=== PATIENT | female | born 1970 | race Caucasian/White ===

== ENCOUNTER 2017-09-18 18:03 | Emergency (ER) | payer OTHER ==
[2017-09-18 18:08] VITALS: BP 122/95; PULSE 101; TEMP 98.3; BMI 31.6
--- NOTE | 2017-09-18 18:10 | PDOC ---
Rapid Medical Evaluation Time Seen by Provider: 09/18/17 18:05 Medical Evaluation: Allergies Allergy/AdvReac Type Severity Reaction Status Date / Time ciprofloxacin [From Cipro] Allergy Verified 09/18/17 18:05 ciprofloxacin HCl Allergy Verified 09/18/17 18:05 [From Cipro] 09/18/17 18:05 I performed a brief in-person evaluation of this patient. The patient presents with a chief complaint of: sorethroat, productive coughing with yellowish phlegm and chest pain x 3 days. Reports chest pain is intermittent and occurs with cough and deep breathing. Denies fever or chills Pertinent physical exam findings: HEENT: erythematous pharynx, no exudate, non enlarged tonsils nad lungs; cta bilat heart: s1s2 I have ordered the following: ekg rapid strep The patient will proceed to the Ed for further evaluation
--- NOTE | 2017-09-18 18:46 | PDOC ---
History of Present Illness - General Chief Complaint: Cold Symptoms Stated Complaint: SORE THROAT Time Seen by Provider: 09/18/17 18:05 History Source: Patient Exam Limitations: No Limitations - History of Present Illness Initial Comments: 09/18/17 18:38 47 yr female with sore throat and cough for 3 days no fever no chills no vomiting pt with phlegm and nasal congestion rapid strep obtained from E Severity: reports: mild Past History - Past Medical History Allergies/Adverse Reactions: Allergies Allergy/AdvReac Type Severity Reaction Status Date / Time ciprofloxacin [From Cipro] Allergy Verified 09/18/17 18:05 ciprofloxacin HCl Allergy Verified 09/18/17 18:05 [From Cipro] Home Medications: Ambulatory Orders Chlorphen/Pseudoeph/Ibuprofen [Advil Allergy Sinus Caplet] 1 each PO ASDIR 09/18 Cyclobenzaprine HCl [Flexeril -] 10 mg PO TID 09/18/17 Naproxen [Naprosyn -] 500 mg PO BID 09/18/17 Triamcinolone Acetonide [Nasacort] 10.8 ml NS DAILY #1 bottle 09/18/17 Asthma: Yes COPD: No - Suicide/Smoking/Psychosocial Hx Smoking History: Never smoked Have you smoked in the past 12 months: No Number of Cigarettes Smoked Daily: 1 Information on smoking cessation initiated: No Hx Alcohol Use: No Drug/Substance Use Hx: No Respiratory Specific PMHX - Complaint Specific PMHX Angina: No Bronchitis: No Pneumonia: No Pulmonary Embolus: No TB (Tuberculosis): No Review of Systems - Review of Systems Able to Perform ROS?: Yes Is the patient limited Cymro proficient: No Constitutional: No: Symptoms Reported HEENTM: Yes: See HPI Respiratory: Yes: See HPI *Physical Exam - Vital Signs Last Vital Signs Temp Pulse Resp BP Pulse Ox 98.3 F 101 H 20 122/95 98 09/18/17 18:05 09/18/17 18:05 09/18/17 18:05 09/18/17 18:05 09/18/17 18:05 - Physical Exam General Appearance: Yes: Nourished, Appropriately Dressed HEENT: positive: EOMI, JESSA, Pharyngeal Erythema, Other (post nasal drip ). negative: Tonsillar Exudate, Tonsillar Erythema Neck: positive: Supple. negative: Tender, Lymphadenopathy (R), Lymphadenopathy (L), Rigidity, Tender lateral Respiratory/Chest: positive: Lungs Clear, Normal Breath Sounds. negative: Chest Tender, Respiratory Distress, Accessory Muscle Use, Paradoxal Breathing, Crackles, Rales, Stridor, Wheezing Cardiovascular: positive: Regular Rhythm, Regular Rate Gastrointestinal/Abdominal: positive: Normal Bowel Sounds, Soft Musculoskeletal: positive: Normal Inspection Extremity: positive: Normal Capillary Refill, Normal Inspection, Normal Range of Motion Integumentary: positive: Normal Color, Dry, Warm Neurologic: positive: composition stone applicator II-XII NML intact, Fully Oriented, Alert, Normal Mood/ Affect, Normal Response, Motor Strength 02/20 ED Treatment Course - ADDITIONAL ORDERS Additional order review: 09/18/17 18:11 Group A Strep Rapid Antigen - Final Throat Medical Decision Making - Medical Decision Making 09/18/17 18:42 cc: sore throat sinus congestion cough for one week not improving with OTC meds pt has asthma states frequent URI will treat with nasocort pt is afebrile no wheezing at this time, no rhonchi, has post nasal drip pt aware to return to ER if any worse,we will notify her if culture is positive. 09/18/17 18:46 *DC/Admit/Observation/Transfer Diagnosis at time of Disposition: Upper respiratory infection Qualifiers: URI type: acute pharyngitis Pharyngitis/tonsillitis etiology: unspecified etiology Qualified Code(s): J02.9 - Acute pharyngitis, unspecified - Discharge Dispostion Disposition: HOME Condition at time of disposition: Good - Prescriptions Prescriptions: Triamcinolone Acetonide [Nasacort] 10.8 ml NS DAILY #1 bottle - Referrals Referrals: Trey Gallego MD [Primary Care Provider] - - Patient Instructions Additional Instructions: use nasocort as prescribed increase vitamin C and Zinc intake increase fluids gargle with warm salt water 4-5 times a day take motrin as needed for any pain or fever return to ER if any worsening symptoms we will call you if the culture is positive - Post Discharge Activity
--- NOTE | 2017-09-19 09:23 | EKG ---
Test Reason : Blood Pressure : / mmHG Vent. Rate : 086 BPM Atrial Rate : 086 BPM P-R Int : 136 ms QRS Dur : 076 ms QT Int : 376 ms P-R-T Axes : 043 010 024 degrees QTc Int : 449 ms NORMAL SINUS RHYTHM POSSIBLE LEFT ATRIAL ENLARGEMENT BORDERLINE ECG WHEN COMPARED WITH ECG OF 03-SEP-2011 00:50, NO SIGNIFICANT CHANGE WAS FOUND Confirmed by ANKUSH CHRISTIAN MD ([id number]) on 09/19/2017 9:23:15 AM Referred By: Confirmed By:ANKUSH CHRISTIAN MD
== END 2017-09-18 19:05 | disposition home or self-care (01) ==
LOC: JERFT 18:03
DX: J02.9 Acute pharyngitis, unspecified (principal)
CPT/HCPCS: 87070; 87430; 93005; 93010; 99281-25

== ENCOUNTER 2019-03-02 07:42 | Emergency (ER) | payer OTHER ==
[2019-03-02 07:53] VITALS: BP 127/87; PULSE 16; TEMP 98.5; BMI 32.0
[2019-03-02] MEDS ORDERED: IBUPROFEN 400 MG TABLET (FP) PO ONE ×2 (08:32→08:36)
--- NOTE | 2019-03-02 08:55 | PDOC ---
History of Present Illness - General Chief Complaint: Injury Stated Complaint: R ANKLE INJURY Time Seen by Provider: 03/02/19 08:20 History Source: Patient Exam Limitations: No Limitations Past History - Past Medical History Allergies/Adverse Reactions: Allergies Allergy/AdvReac Type Severity Reaction Status Date / Time ciprofloxacin [From Cipro] Allergy Verified 03/02/19 07:43 ciprofloxacin HCl Allergy Verified 03/02/19 07:43 [From Cipro] Home Medications: Ambulatory Orders Chlorphen/Pseudoeph/Ibuprofen [Advil Allergy Sinus Caplet] 1 each PO ASDIR 09/18 Cyclobenzaprine HCl [Flexeril -] 10 mg PO TID 09/18/17 Naproxen [Naprosyn -] 500 mg PO BID 09/18/17 Triamcinolone Acetonide [Nasacort] 10.8 ml NS DAILY #1 bottle 09/18/17 Asthma: Yes COPD: No - Immunization History Immunization Up to Date: Yes - Suicide/Smoking/Psychosocial Hx Smoking History: Current every day smoker Have you smoked in the past 12 months: No Number of Cigarettes Smoked Daily: 3 Information on smoking cessation initiated: No Hx Alcohol Use: No Drug/Substance Use Hx: No *Physical Exam - Vital Signs Last Vital Signs Temp Pulse Resp BP Pulse Ox 98.5 F 16 L 17 127/87 100 03/02/19 07:46 03/02/19 07:46 03/02/19 07:46 03/02/19 07:46 03/02/19 07:46 - Physical Exam General Appearance: No: Apparent Distress Extremity: positive: Other (swelling along R lateral malleolus with pain on inversion of R ankle, no deformity, pusles intact of RLE, no ecchymosis) Integumentary: positive: Normal Color. negative: Ecchymosis Neurologic: positive: Alert, Normal Mood/Affect ED Treatment Course - RADIOLOGY Radiology Studies Ordered: Category Date Time Status ANKLE & FOOT-RIGHT* [RAD] Stat Radiology 03/02/19 08:32 Taken - Medications Given in the ED: ED Medications Discontinued Medications Generic Name Dose Route Start Last Admin Trade Name Freq PRN Reason Stop Dose Admin Ibuprofen 800 mg 03/02/19 08:32 03/02/19 08:45 Motrin - PO 03/02/19 08:33 800 mg ONCE ONE Administration Medical Decision Making - Medical Decision Making 48 y/o F hx of anxiety, asthma presents with R ankle injury from yesterday. States she twisted her ankle from a crack on the sidewalk. Took a Motrin last night. Denies other complaints R ankle/foot xray reviewed - no fracture noted Likely ankle sprain Given aircast splint, crutches, Motrin Stable for dc 03/02/19 08:50 *DC/Admit/Observation/Transfer Diagnosis at time of Disposition: Ankle sprain Qualifiers: Encounter type: initial encounter Involved ligament of ankle: unspecified ligament Laterality: right Qualified Code(s): S93.401A - Sprain of unspecified ligament of right ankle, initial encounter - Discharge Dispostion Disposition: HOME Condition at time of disposition: Stable Decision to Admit order: No - Referrals Referrals: Trey Gallego MD [Primary Care Provider] - 2 Days - Patient Instructions Printed Discharge Instructions: DI for Ankle Sprain, How to Use Crutches Additional Instructions: Thank you for choosing [facility]. It was a pleasure taking care of you. No fracture was noted on your xray You may take Motrin 600 mg every 6 hours by mouth as needed for mild to moderate pain. Take Motrin with food. Ice the site for the first 48 hours; then you may switch to warm compresses Keep leg elevated above level of heart to help decrease swelling Follow-up with your doctor in 1 week Return to the Emergency Department if your symptoms worsen or persist or have other concerning symptoms. - Post Discharge Activity Forms/Work/School Notes: Back to Work
== END 2019-03-02 09:14 | disposition home or self-care (01) ==
LOC: JERFT 07:42
DX: S93.401A Sprain of unspecified ligament of right ankle, initial encounter (principal); X58.XXXA Exposure to other specified factors, initial encounter; Y93.89 Activity, other specified; Y92.89 Other specified places as the place of occurrence of the external cause; F41.9 Anxiety disorder, unspecified; F17.210 Nicotine dependence, cigarettes, uncomplicated
CPT/HCPCS: 73610-TC-RT-FY; 73630-TC-RT-FY; 99282-25

== ENCOUNTER 2019-03-10 12:53 | Emergency (ER) | payer OTHER ==
--- NOTE | 2019-03-10 12:58 | PDOC ---
Rapid Medical Evaluation Time Seen by Provider: 03/10/19 12:57 Medical Evaluation: Allergies Allergy/AdvReac Type Severity Reaction Status Date / Time ciprofloxacin [From Cipro] Allergy Verified 03/02/19 07:43 ciprofloxacin HCl Allergy Verified 03/02/19 07:43 [From Cipro] 03/10/19 12:57 I have performed a brief in-person evaluation of this patient. The patient presents with a chief complaint of: pain to left shoulder down arm after using crutches "i think i have a pinched nerve" last took naproxen yesterday Pertinent physical exam findings: well appearing, FROM to left shoulder/arm/ elbow I have ordered the following: shoulder x-ray The patient will proceed to the ED for further evaluation. 03/10/19 12:59
[2019-03-10 13:00] VITALS: BP 145/92; PULSE 105; TEMP 98; BMI 31.8
[2019-03-10] MEDS ORDERED: DEXAMETHASONE SOD PHOSPHATE 10 MG/1 ML VIAL IM ONE (14:39)
[2019-03-10] MEDS ORDERED: IBUPROFEN 600 MG TABLET (FP) PO ONE ×2 (14:39→14:43)
[2019-03-10] MEDS ORDERED: ACETAMINOPHEN 500 MG TABLET (FP) PO ONE (14:39)
[2019-03-10] MEDS ORDERED: DEXAMETHASONE SOD PHOSPHATE 10 MG/1 ML VIAL ONE (14:43)
[2019-03-10] MEDS ORDERED: ACETAMINOPHEN 500 MG TABLET (FP) ONE (14:43)
--- NOTE | 2019-03-10 14:44 | PDOC ---
History of Present Illness - General Chief Complaint: Pain Stated Complaint: LT. SHOULDER/ARM/HAND Time Seen by Provider: 03/10/19 12:57 History Source: Patient, Old Records Exam Limitations: No Limitations - History of Present Illness Initial Comments: 03/10/19 14:39 HISTORY OF PRESENT ILLNESS: No recent travel or sick contacts. PAST MEDICAL HISTORY: Denies past medical history SURGICAL HISTORY: Denies ALLERGIES: No known drug allergies REVIEW OF SYSTEMS General/Constitutional: Denies fever or chills. Denies weakness, weight change. HEENT: Denies change in vision. Denies ear pain or discharge. Denies sore throat. Cardiovascular: Denies chest pain or shortness of breath. Respiratory: Denies cough, wheezing, or hemoptysis. Gastrointestinal: Denies nausea, vomiting, diarrhea or constipation. Denies rectal bleeding. Genitourinary: Denies dysuria, frequency, or change in urination. Musculoskeletal: see HPI Skin and breasts: Denies rash or easy bruising. Neurologic: Denies headache, vertigo, loss of consciousness, or loss of sensation. Psychiatric: Denies depression or anxiety. Endocrine: Denies increased thirst. Denies abnormal weight change. Hematologic/Lymphatic: Denies anemia, easy bleeding, or history of blood clots. Allergic/Immunologic: Denies hives or skin allergy. Denies latex allergy. PHYSICAL EXAM General Appearance: Well-appearing, appropriately dressed. No apparent distress , no intoxication. HEENT: EOMI, PERRLA, normal ENT inspection, normal voice, TMs normal, pharynx normal. No conjunctival pallor. No photophobia, scleral icterus. Neck: Supple. Trachea midline. No tenderness, rigidity, carotid bruit, stridor , lymphadenopathy, or thyromegaly. Respiratory/Chest: Lungs CTAB. No shortness of breath, chest tenderness, respiratory distress, accessory muscle use. No crackles, rales, rhonchi, stridor , wheezing, dullness Cardiovascular: RRR. S1, S2. No JVD, murmur, bradycardia, tachycardia. Vascular Pulses: Radial (R): 2+, Radial (L): 2+ Gastrointestinal/Abdominal: Normal bowel sounds. Abdomen soft, non-distended. No tenderness or rebound tenderness. No organomegaly, pulsatile mass, guarding, hernia, hepatomegaly, splenomegaly. Lymphatic: No adenopathy, tenderness. Musculoskeletal/Extremities: Normal inspection. restricted ROM of Left shoulder on abduction. normal capillary refill. Pelvis Stable. No CVA tenderness. No tenderness to extremities, pedal edema, swelling, erythema or deformity. Integumentary: Appropriate color, dry, warm. 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 Fully oriented, alert. Appropriate mood/affect. Motor strength 5/5. No appreciable EOM palsy, facial droop or sensory deficit. 03/10/19 14:50 Past History - Past Medical History Allergies/Adverse Reactions: Allergies Allergy/AdvReac Type Severity Reaction Status Date / Time ciprofloxacin [From Cipro] Allergy Verified 03/10/19 14:19 ciprofloxacin HCl Allergy Verified 03/10/19 14:19 [From Cipro] Home Medications: Ambulatory Orders Cyclobenzaprine HCl [Flexeril -] 10 mg PO TID 09/18/17 Naproxen [Naprosyn -] 500 mg PO BID 09/18/17 Asthma: Yes COPD: No - Immunization History Immunization Up to Date: Yes - Suicide/Smoking/Psychosocial Hx Smoking History: Unknown if ever smoked Have you smoked in the past 12 months: No Number of Cigarettes Smoked Daily: 3 Information on smoking cessation initiated: No Hx Alcohol Use: No Drug/Substance Use Hx: No *Physical Exam - Vital Signs Last Vital Signs Temp Pulse Resp BP Pulse Ox 98.0 F 105 H 16 145/92 100 03/10/19 12:58 03/10/19 12:58 03/10/19 12:58 03/10/19 12:58 03/10/19 12:58 Medical Decision Making - Medical Decision Making 03/10/19 14:41 A/P: 48-year-old woman left shoulder pain Tender to palpation over the trapezius muscle on the left side with the insertion point at the scapula Range of motion of the left shoulder restricted with abduction. Unable to abduct greater than 90. Wrapper Opener strength 5/5 bilaterally X-rays as read by Dr. Fung: No acute fractures or dislocations present. Motrin 600 mg orally now Tylenol 1 g orally now Decadron 10 mg IM now Discharge home to follow-up with pain management tomorrow *DC/Admit/Observation/Transfer Diagnosis at time of Disposition: Radiculopathy of cervical region - Discharge Dispostion Disposition: HOME Condition at time of disposition: Stable Decision to Admit order: No - Referrals Referrals: Trey Gallego MD [Primary Care Provider] - - Patient Instructions Additional Instructions: Take Tylenol and Motrin as needed for pain. Follow manufacture's instructions for appropriate dosage. Keep her appointment with Dr. Tomas tomorrow for pain management. Return to emergency department for any new or worsening symptoms Thank you very much for choosing us to provide your emergent health care needs. - Post Discharge Activity
== END 2019-03-10 14:50 | disposition home or self-care (01) ==
LOC: JERFT 12:53
PROC: 3E0233Z Introduction of Anti-inflammatory into Muscle, Percutaneous Approach (ICD-10-PCS; principal; 2019-03-10)
DX: M54.12 Radiculopathy, cervical region (principal)
CPT/HCPCS: 73030-TC-LT-FY; 99281-25; J1100

== ENCOUNTER 2019-06-08 20:19 | Emergency (ER) | payer OTHER ==
[2019-06-08 20:27] VITALS: BP 165/102; PULSE 89; TEMP 98.8; BMI 31.8
--- NOTE | 2019-06-08 20:27 | PDOC ---
Rapid Medical Evaluation Chief Complaint: Pain, Acute Time Seen by Provider: 06/08/19 20:25 Medical Evaluation: Allergies Allergy/AdvReac Type Severity Reaction Status Date / Time ciprofloxacin [From Cipro] Allergy Verified 06/08/19 20:25 ciprofloxacin HCl Allergy Verified 06/08/19 20:25 [From Cipro] 06/08/19 20:25 I have performed a brief in-person evaluation of this patient. The patient presents with a chief complaint of: h/o cervical pinched nerve present with complains of left shoulder pain going down left arm. pt report getting trigger point injection 3 days ago but has not been helping with pain. Denies arm weakness, CP, SOB Pertinent physical exam findings: A&O x 3 in NAD I have ordered the following: nothing The patient will proceed to the ED for further evaluation. Discharge Disposition - Diagnosis Left arm pain - Discharge Dispostion Condition at time of disposition: Stable - Referrals - Patient Instructions - Post Discharge Activity
--- NOTE | 2019-06-08 21:47 | PDOC ---
History of Present Illness - General Chief Complaint: Pain, Acute Stated Complaint: LT SHOLDER/ARM PAIN Time Seen by Provider: 06/08/19 20:25 - History of Present Illness Initial Comments: 06/08/19 21:47 48-year-old female without comorbidities presents for evaluation of cervical spine pain with left upper extremity radiculopathy 2 weeks. No loss of bowel or bladder function saddle paresthesias or systemic symptoms. To the care of pain management she's got no relief with [id number] anti-inflammatories gabapentin or trigger point injections. Past History - Past Medical History Allergies/Adverse Reactions: Allergies Allergy/AdvReac Type Severity Reaction Status Date / Time ciprofloxacin [From Cipro] Allergy Verified 06/08/19 20:25 ciprofloxacin HCl Allergy Verified 06/08/19 20:25 [From Cipro] Home Medications: Ambulatory Orders Cyclobenzaprine HCl [Flexeril -] 10 mg PO TID 09/18/17 Naproxen [Naprosyn -] 500 mg PO BID 09/18/17 Cyclobenzaprine HCl [Flexeril 10 mg] 10 mg PO HS PRN #10 tablet 06/08/19 Methylprednisolone [Medrol Dose Sky] 4 mg PO ASDIR #21 tablet 06/08/19 Asthma: Yes COPD: No Hypercholesterolemia: Yes Psychiatric Problems: Yes - Immunization History Immunization Up to Date: Yes - Suicide/Smoking/Psychosocial Hx Smoking History: Current every day smoker Have you smoked in the past 12 months: No Number of Cigarettes Smoked Daily: 3 Information on smoking cessation initiated: No Hx Alcohol Use: No Drug/Substance Use Hx: No Review of Systems - Review of Systems Constitutional: No: Fever Musculoskeletal: Yes: Neck Pain *Physical Exam - Vital Signs Last Vital Signs Temp Pulse Resp BP Pulse Ox 98.8 F 89 18 165/102 H 99 06/08/19 20:25 06/08/19 20:25 06/08/19 20:25 06/08/19 20:25 06/08/19 20:25 - Physical Exam Comments: 06/08/19 21:46 Cervical spine skin color and temperature are normal; range of motion decreased. 5 out of 5 strength bilateral upper extremities. There is no midline tenderness, there is mild bilateral paracervical muscular spasm and tenderness. NVID free of any gross sensory or motor deficits Medical Decision Making - Medical Decision Making 06/08/19 21:46 Local radiculopathy unrelieved with gabapentin and Naprosyn. We will treat with Toradol in the emergency room and start her on a Medrol Dosepak tomorrow and give her neurosurgery follow-up. She has no gross deficits on examination. *DC/Admit/Observation/Transfer Diagnosis at time of Disposition: Left arm pain, Cervical radiculopathy - Discharge Dispostion Disposition: HOME Condition at time of disposition: Stable Decision to Admit order: No - Prescriptions Prescriptions: Cyclobenzaprine HCl [Flexeril 10 mg] 10 mg PO HS PRN #10 tablet PRN Reason: Muscle Spasms Methylprednisolone [Medrol Dose Sky] 4 mg PO ASDIR #21 tablet - Referrals Referrals: Trey Gallego MD [Primary Care Provider] - Aidan Wilson MD, FAANS [Staff Physician] - - Patient Instructions Printed Discharge Instructions: DI for Cervical Radiculopathy Additional Instructions: Discontinue the Naprosyn. Continue with Flexeril and gabapentin as directed. Start the Medrol Dosepak in the morning. Return to the emergency room for worsening symptoms. Without fail, follow-up with neurosurgery in 2-3 days for further evaluation and treatment options. - Post Discharge Activity
[2019-06-08] MEDS ORDERED: KETOROLAC TROMETHAMINE 60 MG/2 ML VIAL ONE (22:02)
== END 2019-06-08 22:08 | disposition home or self-care (01) ==
LOC: JERFT 20:19
DX: M54.12 Radiculopathy, cervical region (principal); M79.602 Pain in left arm; F17.210 Nicotine dependence, cigarettes, uncomplicated; J45.909 Unspecified asthma, uncomplicated; F99 Mental disorder, not otherwise specified; E78.00 Pure hypercholesterolemia, unspecified
CPT/HCPCS: 99281-25

== ENCOUNTER 2019-06-16 17:31 | Emergency (ER) | payer OTHER ==
[2019-06-16 17:38] VITALS: BP 128/89; PULSE 107; TEMP 99.1; BMI 31.8
--- NOTE | 2019-06-16 17:39 | PDOC ---
Rapid Medical Evaluation Chief Complaint: Sore Throat Time Seen by Provider: 06/16/19 17:33 Medical Evaluation: Allergies Allergy/AdvReac Type Severity Reaction Status Date / Time ciprofloxacin [From Cipro] Allergy Verified 06/16/19 17:34 ciprofloxacin HCl Allergy Verified 06/16/19 17:34 [From Cipro] 06/16/19 17:34 48 year old c/o throat pain, sinus congestion and cough. patient has been taking nyquil and dayquil with no relief in symptoms/ PE: patient alert [id number] sounds clear, nasal congestion A: URI with cough P: rapid strep chest xray patient to the ER for further management of care. Discharge Disposition - Diagnosis Upper respiratory infection Qualifiers: URI type: unspecified URI Qualified Code(s): J06.9 - Acute upper respiratory infection, unspecified - Referrals - Patient Instructions - Post Discharge Activity
[2019-06-16] MEDS ORDERED: IBUPROFEN 400 MG TABLET (FP) PO ONE ×2 (18:40→18:53)
[2019-06-16] MEDS ORDERED: PSEUDOEPHEDRINE HCL 30 MG TABLET PO ONE (18:41)
[2019-06-16] MEDS: ALBUTEROL SO4 2.5/IPRATROPIUM 0.5 INH SOL 3 ML VIAL.NEB. NEB SCH ×4 (18:42→19:13)
[2019-06-16] MEDS ORDERED: ALBUTEROL SO4 2.5/IPRATROPIUM 0.5 INH SOL 3 ML VIAL.NEB. NEB ONE (18:53)
--- NOTE | 2019-06-16 19:20 | PDOC ---
History of Present Illness - General Chief Complaint: Sore Throat Stated Complaint: THROAT PROBLEM Time Seen by Provider: 06/16/19 17:33 History Source: Patient Exam Limitations: No Limitations Past History - Travel Traveled outside of the country in the last 30 days: No Close contact w/someone who was outside of country & ill: No - Past Medical History Allergies/Adverse Reactions: Allergies Allergy/AdvReac Type Severity Reaction Status Date / Time ciprofloxacin [From Cipro] Allergy Verified 06/16/19 17:34 ciprofloxacin HCl Allergy Verified 06/16/19 17:34 [From Cipro] Home Medications: Ambulatory Orders Cyclobenzaprine HCl [Flexeril -] 10 mg PO TID 09/18/17 Naproxen [Naprosyn -] 500 mg PO BID 09/18/17 Cyclobenzaprine HCl [Flexeril 10 mg] 10 mg PO HS PRN #10 tablet 06/08/19 Methylprednisolone [Medrol Dose Sky] 4 mg PO ASDIR #21 tablet 06/08/19 Albuterol 0.083% Nebulizer Alicia [Ventolin 0.083% Nebulizer Soln -] 1 neb NEB Q4H #20 vial 06/16/19 Ibuprofen 600 mg PO Q6H #30 tablet 06/16/19 Pseudoephedrine HCl 30 mg PO Q8H #21 tablet 06/16/19 Asthma: Yes COPD: No Hypercholesterolemia: Yes Psychiatric Problems: Yes - Immunization History Immunization Up to Date: Yes - Suicide/Smoking/Psychosocial Hx Smoking History: Former smoker Have you smoked in the past 12 months: No Number of Cigarettes Smoked Daily: 3 If you are a former smoker, when did you quit?: 1WEEK Information on smoking cessation initiated: No Hx Alcohol Use: No Drug/Substance Use Hx: No Review of Systems - Review of Systems Able to Perform ROS?: Yes Comments:: 06/16/19 18:42 CONSTITUTIONAL: Absent: fever, chills, diaphoresis, generalized weakness, malaise, loss of appetite HEENT: Present: throat pain, nasal congestion, rhinorrhea, difficulty swallowing Absent : throat swelling, mouth swelling, ear pain, eye pain, visual Changes CARDIOVASCULAR: Absent: chest pain, loss of consciousness, palpitations, irregular heart rate, peripheral edema RESPIRATORY: Present: cough, chest tightness Absent: cough, shortness of breath, dyspnea with exertion, orthopnea, wheezing, stridor, hemoptysis GASTROINTESTINAL: Absent: abdominal pain, abdominal distension, nausea, vomiting, diarrhea, constipation, melena, hematochezia GENITOURINARY: Absent: dysuria, frequency, urgency, hesitancy, hematuria, flank pain, genital pain MUSCULOSKELETAL: Absent: myalgia, arthralgia, joint swelling SKIN: Absent: rash, itching, pallor HEMATOLOGIC/IMMUNOLOGIC: Absent: easy bleeding, easy bruising, lymphadenopathy, frequent infections ENDOCRINE: Absent: unexplained weight gain, unexplained weight loss, heat intolerance, cold intolerance NEUROLOGIC: Absent: headache, focal weakness or paresthesias, dizziness, unsteady gait, seizure, mental status changes, bladder or bowel incontinence PSYCHIATRIC: Absent: anxiety, depression, suicidal or homicidal ideation, hallucinations. Is the patient limited Khmer proficient: No *Physical Exam - Vital Signs Last Vital Signs Temp Pulse Resp BP Pulse Ox 99.1 F 107 H 16 128/89 100 06/16/19 17:35 06/16/19 17:35 06/16/19 17:35 06/16/19 17:35 06/16/19 17:35 - Physical Exam Comments: 06/16/19 19:20 GENERAL: Well developed, well nourished. Awake and alert. No acute distress. HEENT: Normocephalic, atraumatic. PERRLA, EOMI. No conjunctival pallor. Sclera are non- icteric. Moist mucous membranes. Oropharynx is clear. (+) nasal congestion b/l. NECK: Supple. Full ROM. No JVD. Carotid pulses 2+ and symmetric, without bruits. No thyromegaly. No lymphadenopathy. CARDIOVASCULAR: Regular rate and rhythm. No murmurs, rubs, or gallops. Distal pulses are 2+ and symmetric. PULMONARY: No evidence of respiratory distress. Lungs clear to auscultation bilaterally. No wheezing, rales or rhonchi. SKIN: Warm and dry. Normal capillary refill. No rashes. No jaundice. NEUROLOGICAL: Alert, awake, appropriate. Cranial nerves 2-12 intact. No deficits to light touch and temperature in face, upper extremities and lower extremities. No motor deficits in the in face, upper extremities and lower extremities. Normoreflexic in the upper and lower extremities. Normal speech. Toes are down- going bilaterally. Gait is normal without ataxia. PSYCHIATRIC: Cooperative. Good eye contact. Appropriate mood and affect. ED Treatment Course - Medications Given in the ED: ED Medications Discontinued Medications Generic Name Dose Route Start Last Admin Trade Name Sadaf PRN Reason Stop Dose Admin Albuterol/Ipratropium 1 amp 06/16/19 17:45 06/16/19 18:42 Duoneb - NEB 06/16/19 18:31 1 amp Q15M LEANDRO Administration Medical Decision Making - Medical Decision Making 06/16/19 19:20 the patient is a 48-year-old female who presents to the ER today for 3 days of nasal congestion, sore throat, cough and chest tightness. The patient has a history of asthma. She states that she ran out of her inhaler at home. She notes that she also has a dry cough and that she has chest tightness when she coughs. Patient states that hurts to swallow. She is not tried taking any over- the-counter medication. Denies fevers, chills, shortness of breath, difficulty breathing, nausea, vomiting and diarrhea. A/P: URI On exam lungs are clear to auscultation bilaterally, ears are clear. Throat is nonerythematous with no exudate or edema. Patient is swallowing her own secretions Rapid strep obtained from E is negative at this time Chest x-ray is negative for acute pathology DuoNeb, Motrin and Sudafed given with relief of symptoms. We'll refill patient albuterol and have her follow up with her primary care doctor. Discharge home I discussed the physical exam findings, ancillary test results and final diagnoses with the patient. I answered all of the patient's questions. The patient was satisfied with the care received and felt comfortable with the discharge plan and treatment plan. The Patient agrees to follow up with the primary care physician/specialist within 24-72 hours. Return precautions were given. *DC/Admit/Observation/Transfer Diagnosis at time of Disposition: Upper respiratory infection Qualifiers: URI type: unspecified URI Qualified Code(s): J06.9 - Acute upper respiratory infection, unspecified - Discharge Dispostion Disposition: HOME Condition at time of disposition: Stable Decision to Admit order: No - Referrals Referrals: Raffy Addison MD [Staff Physician] - - Patient Instructions Printed Discharge Instructions: DI for Viral Upper Respiratory Infection -- Adult Additional Instructions: You have an upper respiratory infection, or the common cold. Your strep testing was negative today. Please take Motrin 800 mg every 8 hours as needed for pain not to exceed 3000 mg a day. Take the psudafed as directed. Drink plenty of fluids. Cough drops and warm tea may help your symptoms as well. Please follow up with her primary care doctor this week. Return to the emergency department if you have difficulty breathing, shortness of breath, worsening pain, nausea, vomiting or if you have any changes in your symptoms. - Post Discharge Activity Forms/Work/School Notes: Back to Work
== END 2019-06-16 19:31 | disposition home or self-care (01) ==
LOC: JERFT 17:31
PROC: 3E0F7GC Introduction of Other Therapeutic Substance into Respiratory Tract, Via Natural or Artificial Opening (ICD-10-PCS; principal; 2019-06-16)
DX: J06.9 Acute upper respiratory infection, unspecified (principal); J45.909 Unspecified asthma, uncomplicated
CPT/HCPCS: 71046-TC-FY; 87070; 87880; 99281-25

== ENCOUNTER 2020-05-05 06:51 | Emergency (ER) | payer OTHER ==
[2020-05-05 07:25] VITALS: BP 121/85; PULSE 75; TEMP 98.3; BMI 32.2
--- NOTE | 2020-05-05 07:35 | PDOC ---
History of Present Illness - General Chief Complaint: Sore Throat Stated Complaint: SORE THROAT Time Seen by Provider: 05/05/20 07:35 - History of Present Illness Initial Comments: HPI: 49yo F with PMH of asthma, COVID, GERD, anxiety presenting with sore throat x 2 days. Patient reports that she is able to swallow (liquids more easily than solids) but is somewhat limited by pain. Has been able to control secretions. Reports nasal congestion and rhinorrhea. Has a history of seasonal allergies and is unsure if her symptoms are consistent with this. Believes there may be a component of GERD because patient endorses an acid-like feeling in her throat. Took Tums yesterday with mild relief. Smokes two cigarettes per day. No fevers, chills, chest pain, or shortness of breath. ROS: Constitutional: no fever, no chills HEENT: +throat pain, +dysphagia Cardiovascular: no chest pain, no palpitations Respiratory: no cough, no shortness of breath Gastrointestinal: no abdominal pain, no nausea Genitourinary: no dysuria, no hematuria Musculoskeletal: no myalgia, no arthralgia Skin: no rash, no itching Neurologic: no headache, no weakness Psych: no agitation, no anxiety PE: General: Awake, alert, and fully oriented, in no acute distress Head: No signs of trauma Eyes: EOMI, sclera anicteric ENT: Moist mucus membranes, tonsils are swollen and red without exudates, uvula is midline, no oral masses or lesions, tonsillar lymphadenopathy appreciated Neck: Normal ROM, supple Lungs: Lungs clear, Normal breath sounds Cardio: Regular rhythm, S1 and S2 present Abdomen: Soft, nontender. No guarding, no rebound, no masses Extremities: Normal range of motion, Distal pulses present Skin: Warm, Dry, normal turgor Neurologic: Cranial nerves II through XII grossly intact. Normal speech ED Course/MDM: DDX including but not limited to sore throat: viral vs bacterial vs inflammatory, GERD, peritonsillar abscess, retropharyngeal abscess 05/05/20 07:35 Scores low on CENTOR criteria, strep testing is not indicated. Sore throat is likely viral, but there may be a component of GERD. Prescription for Pepcid, Flonase, Throat drops sent to patient's pharmacy Return precautions Stable for discharge Past History - Medical History Allergies/Adverse Reactions: Allergies Allergy/AdvReac Type Severity Reaction Status Date / Time ciprofloxacin [From Cipro] Allergy Verified 03/15/20 08:04 ciprofloxacin HCl Allergy Verified 03/15/20 08:04 [From Cipro] Home Medications: Ambulatory Orders Albuterol 0.083% Nebulizer Alicia [Ventolin 0.083% Nebulizer Soln -] 1 neb NEB Q4H #20 vial 06/16/19 Atorvastatin Calcium [Lipitor] 20 mg PO HS 03/15/20 Famotidine [Pepcid -] 20 mg PO DAILY #14 tablet 05/05/20 Fluticasone Propionate [Flonase Allergy Relief] 9.9 ml NS BID #1 spray.susp 05/05/20 Pectin [Throat Drops] 2.8 mg MM Q6H PRN #30 lozenge 05/05/20 Asthma: Yes COPD: No Hypercholesterolemia: Yes Psychiatric Problems: Yes - Immunization History Immunization Up to Date: Yes - Psycho-Social/Smoking History Smoking History: Current every day smoker Have you smoked in the past 12 months: No Number of Cigarettes Smoked Daily: 3 If you are a former smoker, when did you quit?: 1WEEK Information on smoking cessation initiated: Yes - Substance Abuse Hx (Audit-C & DAST Scrn) How often the patient has a drink containing alcohol: Monthly or less Score: In Men: 4 or > Positive; In Women: 3 or > Positive: 1 Screen Result (Pos requires Nsg. Audit-10AR): Negative In the last yr the pt used illegal drug/Rx for NonMed reason: No Score: Yes response is considered Positive: 0 Screen Result (Positive result requires Nsg. DAST-10): Negative *Physical Exam - Vital Signs Last Vital Signs Temp Pulse Resp BP Pulse Ox 98.3 F 75 18 121/85 100 05/05/20 07:23 05/05/20 07:23 05/05/20 07:23 05/05/20 07:23 05/05/20 07:23 Discharge - Discharge Information Problems reviewed: Yes Clinical Impression/Diagnosis: Sore throat Condition: Stable Disposition: HOME - Additional Discharge Information Prescriptions: Fluticasone Propionate [Flonase Allergy Relief] 9.9 ml NS BID #1 spray.susp Famotidine [Pepcid -] 20 mg PO DAILY #14 tablet Pectin [Throat Drops] 2.8 mg MM Q6H PRN #30 lozenge PRN Reason: Sore Throat - Follow up/Referral Referrals: Trey Gallego MD [Primary Care Provider] - - Patient Discharge Instructions Patient Printed Discharge Instructions: Sore Throat Additional Instructions: You came into the emergency department for sore throat. Antibiotics are not recommended at this time. Prescriptions sent to your pharmacy. Take as instructed If you want some relief from the pain of sore throat, you can take pain medicine that you can get without a prescription. Throat sprays are no better at soothing pain than sucking on cough drops or candy. Some people feel relief if they gargle with salt water. You can also take [id number] tylenol or motrin for your pain. Follow the instructions on the medication bottle. Immediate medical attention is required if you have: you develop swelling of the neck or tongue, stiff neck or difficulty opening the mouth, skin rash, difficulty breathing, or any new or concerning symptoms. If you think you are having an emergency, call for emergency medical services or present to the emergency department right away - Post Discharge Activity
--- NOTE | 2020-05-05 08:04 | PDOC ---
Attending Attestation - Resident Resident Name: AdryJacintoLeti - ED Attending Attestation I have performed the following: I have examined & evaluated the patient, The case was reviewed & discussed with the resident, I agree w/resident's findings & plan, Exceptions are as noted - HPI HPI: 05/05/20 08:02 49YOF with h/o GERD and anxiety, who p/w 2 days of sore throat with difficulty swallowing solids d/t pain. She additionally notes nasal congestion, but denies any f/c/n/v/d/c, chest pain, abdominal pain, SOB, or other symptoms. She tried taking Tylenol and Motrin, as well as Claritin and Tums, none of which have been helping her. States she quit smoking in January but recently started again. - Physicial Exam PE: 05/05/20 08:03 GENERAL: nontoxic-appearing, A/Ox4, appears mildly uncomfortable, answers questions appropriately HEENT: +posterior pharyngeal erythema with 1+ tonsils but without exudates, uvula midline, no stridor, no palatal lesions, PERRLA, EOMI, moist mucous membranes NECK/BACK: no midline ttp, no spinal stepoff or deformity, no hematoma, full ROM, neck supple CARDIOVASCULAR: regular rate/rhythm, no MGR, strong peripheral pulses, capillary refill <2 seconds, extremities wwp, no edema LUNGS/RESPIRATORY: no respiratory distress, CTAB GI/ABDOMEN: symmetric [id number], normoactive BS, soft, no ttp, no midline pulsatile masses : no CVA tenderness MSK/EXTREMITIES: no muscle atrophy, no acute deformity SKIN: warm and dry, no pallor, no jaundice, no rash, no pathologic-appearing bruising, no skin breakdown, no cuts, no lesions NEUROLOGICAL: GCS 15, CN II-XII grossly intact, 5/5 strength proximally and distally, no facial droop - Medical Decision Making 49YOF p/w sore throat and painful swallowing of solids, and nasal congestion, but without other symptoms. Initial Vital Signs Temp Pulse Resp BP Pulse Ox 98.3 F 75 18 121/85 100 05/05/20 07:23 05/05/20 07:23 05/05/20 07:23 05/05/20 07:23 05/05/20 07:23 DDX IBNLT: Most likely viral pharyngitis. Very unlikely bacterial pharyngitis or tonsillitis, unlikely CARDIOVASCULAR SONOGRAPHER or RPA given her ability to swallow liquids, lack of stridor, lack of neck pain/nucchal rigidity and lack of other exam findings. W/U ordered: None TX ordered: None This patient does not appear toxic and H&P is not concerning for emergency-level pathology at this time. This Pt is appropriate for discharge with close outpatient follow up. Several recommendations are given for symptomatic control of sore throat at home. They are comfortable with this plan and will follow up with PCP in 1-3 days. Specific return precautions are discussed and they will come back to the ER if necessary. Discharge - Discharge Information Problems reviewed: Yes Clinical Impression/Diagnosis: Sore throat Condition: Stable Disposition: HOME - Admission No - Additional Discharge Information Prescriptions: Fluticasone Propionate [Flonase Allergy Relief] 9.9 ml NS BID #1 spray.susp Famotidine [Pepcid -] 20 mg PO DAILY #14 tablet Pectin [Throat Drops] 2.8 mg MM Q6H PRN #30 lozenge PRN Reason: Sore Throat - Follow up/Referral Referrals: Trey Gallego MD [Primary Care Provider] - - Patient Discharge Instructions Patient Printed Discharge Instructions: Sore Throat Additional Instructions: You came into the emergency department for sore throat. Antibiotics are not recommended at this time. Prescriptions sent to your pharmacy. Take as instructed If you want some relief from the pain of sore throat, you can take pain medicine that you can get without a prescription. Throat sprays are no better at soothing pain than sucking on cough drops or candy. Some people feel relief if they gargle with salt water. You can also take [id number] tylenol or motrin for your pain. Follow the instructions on the medication bottle. Immediate medical attention is required if you have: you develop swelling of the neck or tongue, stiff neck or difficulty opening the mouth, skin rash, difficulty breathing, or any new or concerning symptoms. If you think you are having an emergency, call for emergency medical services or present to the emergency department right away - Post Discharge Activity
== END 2020-05-05 08:56 | disposition home or self-care (01) ==
LOC: JER 06:51
DX: R07.0 Pain in throat (principal)
CPT/HCPCS: 99283-25

== ENCOUNTER 2020-05-16 14:38 | Emergency (ER) | payer OTHER ==
[2020-05-16] MEDS ORDERED: DIPHTH,PERTUSS(ACELL),TET 0.5 ML DISP.SYRIN IM ONE ×2 (14:50→15:06)
--- NOTE | 2020-05-16 14:50 | PDOC ---
Rapid Medical Evaluation Time Seen by Provider: 05/16/20 14:47 Medical Evaluation: Allergies Allergy/AdvReac Type Severity Reaction Status Date / Time ciprofloxacin [From Cipro] Allergy Verified 03/15/20 08:04 ciprofloxacin HCl Allergy Verified 03/15/20 08:04 [From Cipro] 05/16/20 14:47 Pt presents for a laceration to her head. 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 No LOC. No blood thinners Exam: 1 cm laceration to the scalp, bleeding controlled Orders: boostrix Pt to proceed to the ER for further evaluation Discharge Disposition - Diagnosis Laceration - Referrals - Patient Instructions - Post Discharge Activity
[2020-05-16 14:59] VITALS: BP 138/89; PULSE 86; TEMP 98.1; BMI 30.8
[2020-05-16] MEDS ORDERED: ACETAMINOPHEN 325 MG TABLET (FP) ONE (15:11)
[2020-05-16] MEDS ORDERED: ACETAMINOPHEN 325 MG TABLET (FP) PO ONE (15:16)
--- NOTE | 2020-05-16 15:20 | PDOC ---
History of Present Illness - General Chief Complaint: Laceration Stated Complaint: LACERATION Time Seen by Provider: 05/16/20 14:47 History Source: Patient - History of Present Illness Timing/Duration: reports: this afternoon Severity: Yes: mild Location: reports: scalp Past History - Medical History Allergies/Adverse Reactions: Allergies Allergy/AdvReac Type Severity Reaction Status Date / Time ciprofloxacin [From Cipro] Allergy Verified 05/16/20 14:54 ciprofloxacin HCl Allergy Verified 05/16/20 14:54 [From Cipro] Home Medications: Ambulatory Orders Albuterol 0.083% Nebulizer Alicia [Ventolin 0.083% Nebulizer Soln -] 1 neb NEB Q4H #20 vial 06/16/19 Atorvastatin Calcium [Lipitor] 20 mg PO HS 03/15/20 Famotidine [Pepcid -] 20 mg PO DAILY #14 tablet 05/05/20 Fluticasone Propionate [Flonase Allergy Relief] 9.9 ml NS BID #1 spray.susp 05/05/20 Pectin [Throat Drops] 2.8 mg MM Q6H PRN #30 lozenge 05/05/20 Asthma: Yes COPD: No Hypercholesterolemia: Yes Psychiatric Problems: Yes - Immunization History Immunization Up to Date: Yes - Psycho-Social/Smoking History Smoking History: Never smoked Have you smoked in the past 12 months: No Number of Cigarettes Smoked Daily: 3 If you are a former smoker, when did you quit?: 1WEEK - Substance Abuse Hx (Audit-C & DAST Scrn) How often the patient has a drink containing alcohol: Never Score: In Men: 4 or > Positive; In Women: 3 or > Positive: 0 Screen Result (Pos requires Nsg. Audit-10AR): Negative In the last yr the pt used illegal drug/Rx for NonMed reason: No Score: Yes response is considered Positive: 0 Screen Result (Positive result requires Nsg. DAST-10): Negative Review of Systems - Review of Systems Neurological: Yes: Headache. No: Dizziness *Physical Exam - Vital Signs Last Vital Signs Temp Pulse Resp BP Pulse Ox 98.1 F 86 16 138/89 100 05/16/20 14:45 05/16/20 14:45 05/16/20 14:45 05/16/20 14:45 05/16/20 14:45 - Physical Exam General Appearance: Yes: Appropriately Dressed, Mild Distress HEENT: positive: Normal Voice Neck: positive: Supple Respiratory/Chest: negative: Respiratory Distress Integumentary: positive: Dry, Warm, Other (~1cm superficial linear lac to R parietal scalp) Neurologic: positive: Fully Oriented, Alert, Normal Mood/Affect Procedures - Laceration/Wound Repair Right Head Wound Length: to 2.5 cm Wound Explored: clean Wound's Depth, Shape: superficial Irrigated w/ Saline: Yes Betadine Prep: Yes Wound Repaired With: [facility] (3) ED Treatment Course - Medications Given in the ED: ED Medications Discontinued Medications Generic Name Dose Route Start Last Admin Trade Name Freq PRN Reason Stop Dose Admin Diphtheria/Tetanus/Acell Pertussis 0.5 ml 05/16/20 14:50 05/16/20 15:06 Boostrix - IM 05/16/20 14:51 0.5 ml .ONCE ONE Administration Medical Decision Making - Medical Decision Making 05/16/20 15:17 49 yo F here w/ scalp lac s/p work injury where pt states a scale stand toppled over onto head. +MULLER, no LOC, dizziness, n/v. Not on blood thinners see exam Minor scalp lac Tetanus UTD Lac repair w/ 3 judson Wound check as needed 05/16/20 15:20 Discharge - Discharge Information Problems reviewed: Yes Clinical Impression/Diagnosis: Laceration Condition: Improved Disposition: HOME - Follow up/Referral Referrals: Trey Gallego MD [Primary Care Provider] - - Patient Discharge Instructions Patient Printed Discharge Instructions: DI for Laceration Repair Additional Instructions: You sustained a minor wound to your scalp that was repaired w/ judson Keep wound dry x 24 hrs. After that you can let water run over wound and apply bacitracin once or twice a day until judson are removed in 7 to 14 days Take tylenol for pain as needed - Post Discharge Activity Work/Back to School Note: Back to Work
== END 2020-05-16 15:19 | disposition home or self-care (01) ==
LOC: JERFT 14:38 → JER 14:38 → JERFT 15:19
PROC: 0HQ0XZZ Repair Scalp Skin, External Approach (ICD-10-PCS; principal; 2020-05-16)
PROC: 3E0234Z Introduction of Serum, Toxoid and Vaccine into Muscle, Percutaneous Approach (ICD-10-PCS; 2020-05-16)
DX: S01.81XA Laceration without foreign body of other part of head, initial encounter (principal)
CPT/HCPCS: 90715; 99284-25

== ENCOUNTER 2020-05-25 19:13 | Emergency (ER) | payer OTHER ==
[2020-05-25 19:24] VITALS: BP 145/102; PULSE 89; TEMP 98; BMI 30.2
--- NOTE | 2020-05-25 19:26 | PDOC ---
Suture Removal/Wound Check HPI - History of Present Illness Chief Complaint: Suture/Staple Removal(Here) Stated Complaint: STAPLE REMOVAL Time Seen by Provider: 05/25/20 19:25 History Source: Yes: Patient, Old Records Treated at: [facility] Date of Last ED visit: 05/14/20 - Previous ED Treatment Type of procedure performed on last visit: Yes: Laceration Repair Tetanus Immunization: Yes: Up to Date Antibiotics Prescribed: No Past History - Medical History Allergies/Adverse Reactions: Allergies Allergy/AdvReac Type Severity Reaction Status Date / Time ciprofloxacin [From Cipro] Allergy Verified 05/25/20 19:22 ciprofloxacin HCl Allergy Verified 05/25/20 19:22 [From Cipro] Home Medications: Ambulatory Orders Albuterol 0.083% Nebulizer Alicia [Ventolin 0.083% Nebulizer Soln -] 1 neb NEB Q4H #20 vial 06/16/19 Atorvastatin Calcium [Lipitor] 20 mg PO HS 03/15/20 Famotidine [Pepcid -] 20 mg PO DAILY #14 tablet 05/05/20 Fluticasone Propionate [Flonase Allergy Relief] 9.9 ml NS BID #1 spray.susp 05/05/20 Pectin [Throat Drops] 2.8 mg MM Q6H PRN #30 lozenge 05/05/20 Asthma: Yes COPD: No Hypercholesterolemia: Yes Psychiatric Problems: Yes - Reproductive History Is Patient Now?: No - Immunization History Immunization Up to Date: Yes - Psycho-Social/Smoking History Smoking History: Current every day smoker Have you smoked in the past 12 months: No Number of Cigarettes Smoked Daily: 3 If you are a former smoker, when did you quit?: 1WEEK Information on smoking cessation initiated: No - Substance Abuse Hx (Audit-C & DAST Scrn) How often the patient has a drink containing alcohol: Never Score: In Men: 4 or > Positive; In Women: 3 or > Positive: 0 Screen Result (Pos requires Nsg. Audit-10AR): Negative Suture Removal/Wound Check PE - Physical Exam Laceration/Wound Check Symptoms: reports: None Current Severity Level: None Maximum Severity Level: None Pain Localization: None Location of Laceration/Wound: right: Head (Temporal) Pain Radiation: None *Review of Systems - Review of Systems Able to Perform ROS?: Yes All Other Systems: Reviewed and Negative *Physical Exam - Vital Signs Last Vital Signs Temp Pulse Resp BP Pulse Ox 98 F 89 18 145/102 H 99 05/25/20 19:15 05/25/20 19:15 05/25/20 19:15 05/25/20 19:15 05/25/20 19:15 - Physical Exam General Appearance: Yes: Appropriately Dressed Integumentary: positive: Normal Color, Dry, Warm, Other (Suture line to right temporal region clean dry and intact. Wound is well approximated and well- healed.) Medical Decision Making - Medical Decision Making 05/25/20 19:32 A/P: 49-year-old woman here for staple removal Wound is well-healed and well approximated. No signs of infection noted. 3 judson removed without incident Discharge home Discharge - Discharge Information Problems reviewed: Yes Clinical Impression/Diagnosis: Removal of judson Condition: Stable Disposition: HOME - Admission No - Follow up/Referral Referrals: Trey Gallego MD [Primary Care Provider] - - Patient Discharge Instructions Patient Printed Discharge Instructions: DI for Suture Removal - Post Discharge Activity
== END 2020-05-25 20:33 | disposition home or self-care (01) ==
LOC: JERFT 19:13 → JER 19:13 → JERFT 20:33
DX: Z48.02 Encounter for removal of sutures (principal)
CPT/HCPCS: 99281-25

== ENCOUNTER 2021-05-18 10:34 | Emergency (ER) | payer OTHER ==
[2021-05-18 10:38] VITALS: BP 140/85; PULSE 83; TEMP 98.6; BMI 31.6
== END 2021-05-18 12:45 | disposition home or self-care (01) ==
LOC: JER 10:34
DX: R07.0 Pain in throat (principal); R09.81 Nasal congestion
CPT/HCPCS: 87880; 99283-25; C9803; U0003; U0005

== ENCOUNTER 2021-12-30 21:29 | Emergency (ER) | payer OTHER ==
[2021-12-30 21:34] VITALS: TEMP 98.3; BMI 33.2
[2021-12-30] MEDS ORDERED: DEXAMETHASONE 4 MG TABLET (FP) PO ONE (23:40)
[2021-12-30] MEDS ORDERED: SODIUM CHLORIDE FOR INHALATION 3 ML VIAL.NEB IH ONE (23:41)
[2021-12-30] MEDS ORDERED: ALBUTEROL SO4 0.083% IH SOL 2.5 MG/3 ML VIAL.NEB. NEB ONE ×2 (23:43→23:49)
[2021-12-30] MEDS ORDERED: ACETAMINOPHEN 500 MG TABLET (FP) PO ONE (23:49)
[2021-12-30] MEDS ORDERED: DEXAMETHASONE 4 MG TABLET (FP) ONE (23:49)
[2021-12-31] MEDS ORDERED: ACETAMINOPHEN 500 MG TABLET (FP) ONE (00:20)
[2021-12-31 00:47] LABS: BASO % 0.7 % (0-2.0); EOS % 1.6 % (0-4.5); HEMATOCRIT 37.3 % (32.4-45.2); HEMOGLOBIN 12.9 GM/dL (10.7-15.3); LYMPH % 14.5 % (8-40); MCH 31.2 pg (25.7-33.7); MCHC 34.7 g/dl (32.0-36.0); MEAN CELL VOLUME 89.9 fl (80-96); MEAN PLT VOLUME 6.9 fl (7.5-11.1); MONO % 7.3 % (3.8-10.2); NEUT % 75.9 % (42.8-82.8); PLATELET COUNT 368 10^3/uL (134-434); RBC 4.15 M/mm3 (3.60-5.2); RDW 14.5 % (11.6-15.6)
[2021-12-31 01:10] LABS: ALBUMIN 3.8 g/dl (3.4-5.0); BLOOD UREA NITROGEN 13.9 mg/dL (7-18); CALCIUM 9.2 mg/dL (8.5-10.1)
[2021-12-31 01:14] LABS: CREATININE 0.7 mg/dL (0.55-1.3)
[2021-12-31 01:16] LABS: BILIRUBIN,TOTAL 0.6 mg/dL (0.2-1); TOT PROT 6.9 g/dl (6.4-8.2)
[2021-12-31 02:24] LABS: INR 1.09 (0.83-1.09); PROTHROMBIN TIME (PATIENT) 12.6 SEC (9.7-13.0)
[2021-12-31 02:27] LABS: ACTIVATED PTT 31.8 SECONDS (25.2-36.5)
[2021-12-31 04:54] VITALS: BP 118/74; PULSE 112
[2022-01-01 11:09] LABS: SARS-CoV-2 NAA Not Detected (Not Detected)
== END 2021-12-31 04:54 | disposition home or self-care (01) ==
LOC: JER 21:29
PROC: 3E0F7GC Introduction of Other Therapeutic Substance into Respiratory Tract, Via Natural or Artificial Opening (ICD-10-PCS; principal; 2021-12-30)
DX: R07.89 Other chest pain (principal)
CPT/HCPCS: 36415; 71046-TC-FY; 80053; 84484; 85025; 85379; 85610; 85730; 87070; 87651; 93005; 93010; 99285-25; C9803; U0003; U0005

== ENCOUNTER 2022-02-08 19:33 | Emergency (ER) | payer OTHER ==
[2022-02-08 19:38] VITALS: BP 142/84; PULSE 86; BMI 32.2
[2022-02-08 19:43] VITALS: TEMP 97.8
[2022-02-08] MEDS ORDERED: IBUPROFEN 600 MG TABLET (FP) PO ONE ×2 (19:59→20:10)
== END 2022-02-08 20:43 | disposition home or self-care (01) ==
LOC: JERFT 19:33
DX: H60.503 Unspecified acute noninfective otitis externa, bilateral (principal); J02.9 Acute pharyngitis, unspecified
CPT/HCPCS: 87651; 99283-25

== ENCOUNTER 2022-04-21 22:28 | Emergency (ER) | payer OTHER ==
[2022-04-21 22:39] VITALS: BP 146/95; PULSE 105; TEMP 98.2; BMI 32.2
[2022-04-21] MEDS ORDERED: DEXAMETHASONE SOD PHOSPHATE 10 MG/1 ML VIAL IVPUSH ONE (23:36)
[2022-04-21] MEDS ORDERED: ALBUTEROL SO4 2.5/IPRATROPIUM 0.5 INH SOL 3 ML VIAL.NEB. NEB ONE ×2 (23:36→23:59)
[2022-04-21 23:52] LABS: BASO % 0.7 % (0-2.0); EOS % 1.5 % (0-4.5); HEMATOCRIT 38.3 % (32.4-45.2); HEMOGLOBIN 13.1 GM/dL (10.7-15.3); LYMPH % 9.7 % (8-40); MCH 31.3 pg (25.7-33.7); MCHC 34.4 g/dl (32.0-36.0); MEAN PLT VOLUME 6.6 fl (7.5-11.1); MONO % 7.8 % (3.8-10.2); NEUT % 80.3 % (42.8-82.8); PLATELET COUNT 371 10^3/uL (134-434); RDW 14.6 % (11.6-15.6); WHITE BLOOD COUNT 7.9 K/mm3 (4.0-10.0)
[2022-04-21] MEDS ORDERED: DEXAMETHASONE SOD PHOSPHATE 10 MG/1 ML VIAL ONE (23:59)
[2022-04-22 00:14] LABS: CALCIUM 9.4 mg/dL (8.5-10.1)
[2022-04-22 00:15] LABS: ALBUMIN 3.8 g/dl (3.4-5.0); BLOOD UREA NITROGEN 19.6 mg/dL (7-18)
[2022-04-22 00:18] LABS: CREATININE 0.8 mg/dL (0.55-1.3)
[2022-04-22 00:20] LABS: BILIRUBIN,TOTAL 0.4 mg/dL (0.2-1); TOT PROT 7.1 g/dl (6.4-8.2)
[2022-04-22] MEDS ORDERED: ACETAMINOPHEN 325 MG TABLET (FP) PO ONE (03:36)
[2022-04-22] MEDS ORDERED: ACETAMINOPHEN 325 MG TABLET (FP) ONE (03:41)
== END 2022-04-22 04:18 | disposition home or self-care (01) ==
LOC: JER 22:28
PROC: 3E0F7GC Introduction of Other Therapeutic Substance into Respiratory Tract, Via Natural or Artificial Opening (ICD-10-PCS; principal; 2022-04-21)
PROC: 3E033GC Introduction of Other Therapeutic Substance into Peripheral Vein, Percutaneous Approach (ICD-10-PCS; 2022-04-21)
DX: U07.1 COVID-19 (principal)
CPT/HCPCS: 0241U-QW; 36415; 71045-TC-FY; 80053; 84484; 85025; 87651; 93005; 93010; 99285-25; J1100

== ENCOUNTER 2022-04-22 14:10 | Emergency (ER) | payer OTHER ==
[2022-04-22 14:58] VITALS: BP 112/67; PULSE 106; TEMP 98.5; BMI 32.2
[2022-04-22] MEDS ORDERED: BEBTELOVIMAB (EUA) 175 MG/2 ML VIAL IVPUSH ONE (16:29)
== END 2022-04-22 22:24 | disposition home or self-care (01) ==
LOC: JER 14:10
DX: U07.1 COVID-19 (principal)
CPT/HCPCS: 99284-25; Q0222

== ENCOUNTER 2023-10-28 10:22 | Emergency (ER) | payer OTHER ==
[2023-10-28 10:32] VITALS: BP 139/88; PULSE 91; RESP 18; TEMP 98.2; BMI 31.6
[2023-10-28] MEDS ORDERED: SODIUM CHLORIDE 1,000 ML IV STA ×2 (11:06→11:07)
[2023-10-28] MEDS ORDERED: LOPERAMIDE HCL 2 MG CAPSULE PO ONE ×2 (11:07→13:39)
[2023-10-28] MEDS ORDERED: FAMOTIDINE 20 MG/50 ML IVPB 20 MG/50 ML MG IVPB ONE ×2 (11:07→11:28)
[2023-10-28] MEDS ORDERED: LOPERAMIDE HCL 2 MG CAPSULE ONE ×2 (11:28→13:40)
[2023-10-28 12:07] LABS: BASO % 0.5 % (0-2.0); EOS % 2.4 % (0-4.5); HEMATOCRIT 45.2 % (32.4-45.2); HEMOGLOBIN 14.8 GM/dL (10.7-15.3); LYMPH % 25.1 % (8-40); MCH 30.6 pg (25.7-33.7); MCHC 32.8 g/dl (32.0-36.0); MEAN CELL VOLUME 93.4 fl (80-96); MEAN PLT VOLUME 6.9 fl (7.5-11.1); MONO % 11.6 % (3.8-10.2); NEUT % 60.4 % (42.8-82.8); PLATELET COUNT 458 10^3/uL (134-434); RBC 4.84 M/mm3 (3.60-5.2); RDW 14.4 % (11.6-15.6); WHITE BLOOD COUNT 7.8 K/mm3 (4.0-10.0)
[2023-10-28 12:30] LABS: EPI CELLS >36 /uL (0-25.1); HYALINE CASTS 3 /uL (0-3.1); URINE APPEARANCE CLEAR; URINE BACTERIA 8 /uL (0-1359); URINE BILIRUBIN NEGATIVE (NEGATIVE); URINE COLOR YELLOW; URINE GLUCOSE (UA) NEGATIVE (NEGATIVE); URINE KETONE NEGATIVE (NEGATIVE); URINE LEUK ESTERASE NEGATIVE (NEGATIVE); URINE NITRITE NEGATIVE (NEGATIVE); URINE PROTEIN 1+ (NEGATIVE); URINE RBC 114 /uL (0-23.9); URINE UROBILINOGEN 0.2 mg/dL (0.2-1.0); URINE WBC 21 /uL (0-25.8)
[2023-10-28 12:35] LABS: POTASSIUM 3.8 mmol/L (3.5-5.1)
[2023-10-28 12:39] LABS: CALCIUM 9.2 mg/dL (8.5-10.1)
[2023-10-28 12:40] LABS: ALBUMIN 3.4 g/dl (3.4-5.0); BLOOD UREA NITROGEN 18.4 mg/dL (7-18); MAGNESIUM 2.2 mg/dL (1.8-2.4)
[2023-10-28 12:43] LABS: CREATININE 0.8 mg/dL (0.55-1.3)
[2023-10-28 12:44] LABS: BILIRUBIN,TOTAL 0.4 mg/dL (0.2-1); TOT PROT 7.1 g/dl (6.4-8.2)
== END 2023-10-28 15:38 | disposition home or self-care (01) ==
LOC: JER 10:22
PROC: 3E033GC Introduction of Other Therapeutic Substance into Peripheral Vein, Percutaneous Approach (ICD-10-PCS; principal; 2023-10-28)
PROC: 3E0337Z Introduction of Electrolytic and Water Balance Substance into Peripheral Vein, Percutaneous Approach (ICD-10-PCS; 2023-10-28)
DX: R19.7 Diarrhea, unspecified (principal); R10.13 Epigastric pain; R11.0 Nausea; R68.83 Chills (without fever)
CPT/HCPCS: 36415; 80053; 81003; 83690; 83735; 85025; 99284-25